=== PATIENT | female | born 1995 | race Caucasian/White ===

== ENCOUNTER 2020-12-02 12:33 | Emergency (ER) | payer OTHER ==
[~2020-12-02] VITALS: Ht 167.6 cm; Wt 63.7 kg
[2020-12-02] MEDS ORDERED: ZYRTTAB8 PO (12:44)
[2020-12-02] MEDS ORDERED: MOME50SP NARES (12:44)
[2020-12-02] MEDS ORDERED: DULC10SU2 PR (12:44)
[2020-12-02] MEDS ORDERED: MIRA3350 PO (12:44)
[2020-12-02] MEDS ORDERED: FLON1SPR NARES (12:44)
[2020-12-02] MEDS ORDERED: VITMTA PO (12:44)
[2020-12-02] MEDS ORDERED: PSEU30TA88 PO (12:44)
[2020-12-02] MEDS ORDERED: ACETAMINOPHEN 325 MG TAB PO ONE (16:45)
[2020-12-02 17:31] LABS: BASO % 0.4 % (0.0-1.0); EOS # 0.5 10^3/uL (0.0-0.5); EOS % 6.4 % (0.0-3.0); HEMATOCRIT 43.8 % (36.0-47.0); HEMOGLOBIN 14.3 g/dl (12.0-15.5); LYMPH # 2.2 10^3/uL (1.5-5.0); LYMPH % 30.5 % (24.0-44.0); MEAN CORPUSCULAR HEMOGLOBIN 30.2 pg (27.0-33.0); MEAN CORPUSCULAR HGB CONC 32.6 g/dl (32.0-36.5); MEAN CORPUSCULAR VOLUME 92.4 fl (80.0-96.0); MONO # 0.4 10^3/uL (0.0-0.8); MONO % 5.2 % (2.0-8.0); NEUTROPHILS % 57.2 % (36.0-66.0); PLATELET COUNT, AUTOMATED 233 10^3/uL (150-450); RED BLOOD COUNT 4.74 10^6/uL (4.00-5.40); WHITE BLOOD COUNT 7.1 10^3/uL (4.0-10.0)
[2020-12-02 17:54] LABS: ALBUMIN 4.2 GM/DL (3.2-5.2); BILIRUBIN,DIRECT 0.1 MG/DL (0.0-0.2); BILIRUBIN,TOTAL 0.5 MG/DL (0.2-1.0); TOTAL PROTEIN 7.4 GM/DL (6.4-8.2)
[2020-12-02 19:15] VITALS: BP 102/62
--- NOTE | 2020-12-02 19:25 | REP ---
INDICATION: pelvic pain. COMPARISON: None. TECHNIQUE: Transabdominal scanning was performed. FINDINGS: Uterine dimensions are normal at 6.8 x 3.1 x 5.1 cm. No free fluid is seen in the cul-de-sac. Visualized bladder bucio are smooth. An IUD is seen in good position in the uterine endometrium. The endometrium could not be measured as result. Visualized bladder bucio are smooth. The right ovary has dimensions of 2.5 x 1.3 x 2.6 cm. It's Doppler flow is normal with a resistive index of 0.62. The left ovary dimensions are normal as well at 3.5 x 1.6 x 1.8 cm. It's Doppler flow was normal with resistive index of 0.69. IMPRESSION: Normal pelvic sonography. IUD seen in good position. Normal ovaries. <Electronically signed by Kory Merritt > 12/02/201920
== END 2020-12-02 19:19 | disposition home or self-care (01) ==
LOC: M ED 12:33
DX: R10.30 Lower abdominal pain, unspecified (principal); M54.5 Low back pain; F33.9 Major depressive disorder, recurrent, unspecified; Z91.018 Allergy to other foods; E73.9 Lactose intolerance, unspecified; N80.9 Endometriosis, unspecified; K58.9 Irritable bowel syndrome, unspecified; E28.2 Polycystic ovarian syndrome; Z79.899 Other long term (current) drug therapy; J30.2 Other seasonal allergic rhinitis; Z97.5 Presence of (intrauterine) contraceptive device

== ENCOUNTER 2020-12-12 10:19 | Emergency (ER) | payer OTHER ==
[~2020-12-12] VITALS: Ht 165.1 cm; Wt 64.6 kg
[~2020-12-12 10:19] MED LIST: DULC10SU2 PR; FLON1SPR NARES; MIRA3350 PO; MOME50SP NARES; PSEU30TA88 PO; VITMTA PO; ZYRTTAB8 PO
[2020-12-12] MEDS ORDERED: ACETAMINOPHEN 500 MG TAB PO ONE (11:30)
[2020-12-12 11:49] LABS: BASO % 0.6 % (0.0-1.0); EOS # 0.5 10^3/uL (0.0-0.5); EOS % 7.1 % (0.0-3.0); HEMATOCRIT 40.6 % (36.0-47.0); HEMOGLOBIN 13.7 g/dl (12.0-15.5); LYMPH # 2.1 10^3/uL (1.5-5.0); LYMPH % 30.5 % (24.0-44.0); MEAN CORPUSCULAR HEMOGLOBIN 30.9 pg (27.0-33.0); MEAN CORPUSCULAR HGB CONC 33.7 g/dl (32.0-36.5); MEAN CORPUSCULAR VOLUME 91.6 fl (80.0-96.0); MONO # 0.4 10^3/uL (0.0-0.8); MONO % 5.8 % (2.0-8.0); NEUTROPHILS # 3.8 10^3/uL (1.5-8.5); NEUTROPHILS % 55.9 % (36.0-66.0); PLATELET COUNT, AUTOMATED 243 10^3/uL (150-450); RED BLOOD COUNT 4.43 10^6/uL (4.00-5.40); WHITE BLOOD COUNT 6.8 10^3/uL (4.0-10.0)
[2020-12-12 12:13] LABS: ALBUMIN 4.2 GM/DL (3.2-5.2); ALT/SGPT 40 U/L (12-78); BILIRUBIN,DIRECT 0.1 MG/DL (0.0-0.2); BILIRUBIN,TOTAL 0.6 MG/DL (0.2-1.0); BLOOD UREA NITROGEN 7 MG/DL (7-18); CALCIUM LEVEL 9.5 MG/DL (8.5-10.1); CARBON DIOXIDE LEVEL 28 MEQ/L (21-32); CHLORIDE LEVEL 105 MEQ/L (98-107); CREATININE FOR GFR 0.97 MG/DL (0.55-1.30); GLOMERULAR FILTRATION RATE > 60.0 (>60); GLUCOSE, FASTING 85 MG/DL (70-100); LIPASE 196 U/L (73-393); POTASSIUM SERUM 3.8 MEQ/L (3.5-5.1); SODIUM LEVEL 137 MEQ/L (136-145); TOTAL PROTEIN 7.1 GM/DL (6.4-8.2)
--- NOTE | 2020-12-12 13:04 | REP ---
INDICATION: pelvic pain, IUD placed 10/14/20. COMPARISON: 12/02/2020 TECHNIQUE: Transvesical imaging only. The reason for the lack of transvaginal imaging is unknown. There was no transvaginal imaging on the prior exam. FINDINGS: The uterus is unchanged in size, shape, and echo pattern today measuring 6.5 x 3.1 x 4.4 cm. Within the uterus, note is again made of a specular reflection consistent with an IUD the appearance of which is unchanged. Right ovary measures 3.7 x 2.1 x 2.6 cm and is within normal limits with an RI 0.73 Left ovary measures 2.9 x 1.2 x 1.5 cm and is within normal limits with an RI 0.66. There is no free fluid in cul-de-sac IMPRESSION: No significant change from the prior exam. Pelvic ultrasonography is within normal limits as described above. <Electronically signed by Gray Ridley > 12/12/20 1300
[2020-12-12 14:36] LABS: CHLAMYDIA DNA AMPLIFICATION NEGATIVE (NEGATIVE); GC DNA AMPLIFICATION NEGATIVE (NEGATIVE)
[2020-12-12] MEDS ORDERED: DOXY1CAP62 PO (15:25)
[2020-12-12] MEDS ORDERED: FLAG500T PO (15:25)
[2020-12-12 15:38] VITALS: BP 112/69
== END 2020-12-12 15:42 | disposition home or self-care (01) ==
LOC: M ED 10:19
DX: R10.2 Pelvic and perineal pain (principal); K58.9 Irritable bowel syndrome, unspecified; Z79.51 Long term (current) use of inhaled steroids; Z79.899 Other long term (current) drug therapy

== ENCOUNTER 2021-02-14 19:49 | Emergency (ER) | payer OTHER ==
[~2021-02-14] VITALS: Ht 165.1 cm; Wt 62.3 kg
[~2021-02-14 19:49] MED LIST changes: +DOXY1CAP62 PO; +FLAG500T PO
[2021-02-14 19:50] VITALS: BP 128/74
== END 2021-02-14 21:43 | disposition home or self-care (01) ==
LOC: M ED 19:49
DX: F43.20 Adjustment disorder, unspecified (principal); K58.9 Irritable bowel syndrome, unspecified; Z91.018 Allergy to other foods; Z79.899 Other long term (current) drug therapy

== ENCOUNTER 2021-07-15 11:27 | Emergency (ER) | payer OTHER ==
[~2021-07-15] VITALS: Ht 165.1 cm; Wt 63.5 kg
[2021-07-15 11:27] VITALS: BP 134/81
[~2021-07-15 11:27] MED LIST changes: +DOXY-443 PO; -DOXY1CAP62 PO; -MOME50SP NARES; +NASO50SP3 NARES
== END 2021-07-15 20:20 | disposition left against medical advice (07) ==
LOC: M ED 11:27
DX: Z53.21 Procedure and treatment not carried out due to patient leaving prior to being seen by health care provider (principal)

== ENCOUNTER 2021-09-03 06:09 | Day surgery (SDC) | payer OTHER ==
[~2021-09-03] VITALS: Ht 165.1 cm; Wt 59.6 kg
[~2021-09-03 06:09] MED LIST changes: +ADAP0.1C TOP; +AUGM0.05 TOP; +CELLOPD; +ERYT5OIN25; +FLUO20CA22 PO; +LIDOCAINE 1% MDV 20ML VIAL SQ PRN; +LR 1,000 ML IV ONE; +OMEP-173 PO; +PLEC3TAB PO; +REST0.05 OU; +YASM3TAB2 PO
[2021-09-03] MEDS ORDERED: diphenhydrAMINE 50MG/ML VIAL (J1200) As Ordered ONE ×2 (07:11→09:05)
[2021-09-03 07:14] LABS: HEMATOCRIT 44.2 % (36.0-47.0); HEMOGLOBIN 15.6 g/dl (12.0-15.5); MEAN CORPUSCULAR HEMOGLOBIN 29.7 pg (27.0-33.0); MEAN CORPUSCULAR HGB CONC 35.3 g/dl (32.0-36.5); PLATELET COUNT, AUTOMATED 344 10^3/uL (150-450); RED BLOOD COUNT 5.26 10^6/uL (4.00-5.40); WHITE BLOOD COUNT 9.6 10^3/uL (4.0-10.0)
[2021-09-03] MEDS ORDERED: ACETAMINOPHEN 650 MG SUPP As Ordered ONE (07:15)
[2021-09-03] MEDS ORDERED: diphenhydrAMINE 50MG/ML VIAL (J1200) IV ONE (07:15)
[2021-09-03] MEDS ORDERED: BUPIVACAINE HCL 0.5% 10ML VIAL As Ordered ONE (07:15)
[2021-09-03] MEDS ORDERED: LIDOCAINE PRES-FREE 2% 10ML AMP As Ordered ONE (07:18)
[2021-09-03] MEDS ORDERED: KETOROLAC 60MG 2ML VIAL As Ordered ONE (07:18)
[2021-09-03] MEDS ORDERED: ROCURONIUM BROMIDE 50 MG/5 ML VIAL As Ordered ONE (07:18)
[2021-09-03] MEDS ORDERED: dexameTHASONE 4 MG/ML 1ML VIAL (J1100 PER 1MG) As Ordered ONE (07:18)
[2021-09-03] MEDS ORDERED: MIDAZOLAM INJ 2MG/2ML VIAL (J2250 PER 1MG) As Ordered ONE (07:18)
[2021-09-03] MEDS ORDERED: propofoL 200 MG/20 ML VIAL As Ordered ONE (07:18)
[2021-09-03] MEDS ORDERED: ONDANSETRON 4MG/2ML VIAL As Ordered ONE ×2 (07:18→09:05)
[2021-09-03] MEDS ORDERED: fentaNYL 100 MCG/2 ML INJECTION As Ordered ONE (07:19)
[2021-09-03 07:44] LABS: BLOOD UREA NITROGEN 10 MG/DL (7-18); CALCIUM LEVEL 10.1 MG/DL (8.5-10.1); CARBON DIOXIDE LEVEL 27 MEQ/L (21-32); CHLORIDE LEVEL 101 MEQ/L (98-107); CREATININE FOR GFR 1.12 MG/DL (0.55-1.30); GLOMERULAR FILTRATION RATE > 60.0 (>60); GLUCOSE, FASTING 96 MG/DL (70-100); HCG, SERUM QUANTITATIVE < 1.0 MIU/ML; POTASSIUM SERUM 3.2 MEQ/L (3.5-5.1); SODIUM LEVEL 138 MEQ/L (136-145)
[2021-09-03] MEDS ORDERED: SUGAMMADEX SODIUM 500 MG/5 ML VIAL (BRIDION) As Ordered ONE (08:46)
[2021-09-03] MEDS ORDERED: PERCOCET 5MG/325MG TAB PO PRN (09:20)
[2021-09-03] MEDS ORDERED: fentaNYL 100 MCG/2 ML INJECTION IV PRN (09:20)
[2021-09-03] MEDS ORDERED: MEPERIDINE INJ 25 MG/ML VIAL (J2175) IV PRN (09:20)
[2021-09-03] MEDS ORDERED: LR 1,000 ML IV SCH (09:20)
[2021-09-03] MEDS ORDERED: METOCLOPRAMIDE INJ 10MG/2ML VIAL (J2765 PER 1) IV PRN (09:25)
[2021-09-03] MEDS ORDERED: PROMETHAZINE INJ 25 MG/ML VIAL (J2550) IV PRN (09:25)
[2021-09-03 12:50] VITALS: BP 109/56
[2021-09-03] MEDS ORDERED: KETOROLAC 30 MG/ML 1ML VIAL IV PRN (15:00)
== END 2021-09-03 12:50 | disposition home or self-care (01) ==
LOC: M SDC 06:09
PROVIDERS: ATTEND Obstetrics & Gynecology
DX: Z30.2 Encounter for sterilization (principal); N93.9 Abnormal uterine and vaginal bleeding, unspecified; K58.1 Irritable bowel syndrome with constipation; K21.9 Gastro-esophageal reflux disease without esophagitis; L70.9 Acne, unspecified; F43.20 Adjustment disorder, unspecified; F32.9 Major depressive disorder, single episode, unspecified; Z91.018 Allergy to other foods; Z91.048 Other nonmedicinal substance allergy status; Z91.011 Allergy to milk products; Z79.899 Other long term (current) drug therapy; Z79.2 Long term (current) use of antibiotics; Z79.3 Long term (current) use of hormonal contraceptives
CPT/HCPCS: 36415; 58558; 58661; 80048; 84702; 85027; 88302; 88305; J1100; J1200; J1885; J2250; J2405; J3010

== ENCOUNTER → 2021-11-21 | Outpatient (REF) | payer OTHER ==
[~2021-11-21] MED LIST changes: -LIDOCAINE 1% MDV 20ML VIAL SQ PRN; -LR 1,000 ML IV ONE
== END ==
LOC: M LAB REF 12:11
PROVIDERS: ATTEND Physician Assistant Medical
DX: N39.0 Urinary tract infection, site not specified (principal)